=== PATIENT | female | born 1960 | race Caucasian/White ===

== ENCOUNTER 2019-10-21 08:16 | Outpatient (CLI) | payer BC, SELFPAY ==
[2019-10-21 09:17] LABS: Add Urine Microscopic? YES; Appearance Urine Clear (Clear); Bilirubin Urine Negative (Negative); Blood Urine Negative (Negative); Color Urine Amber (Yellow); Glucose Urine UA Negative (Negative); Ketones Urine Negative (Negative); Leukocyte Esterase Ur Trace LEU/UL (NEGATIVE); Mucus Urine Few /lpf; Nitrate Urine Negative (Negative); Protein Urine Negative (Negative); RBC Urine 0-2 /hpf (0-2); Specific Grav Ur 1.019 (1.001-1.035); Squamous Epithelial Cell Urine Few /hpf (Few); Urobilinogen Urine Negative mg/dL (<2.0)
== END 2019-10-21 08:17 | disposition home or self-care (01) ==
PROVIDERS: PCP Family Medicine Adolescent Medicine; Visit Provider Family Medicine Adolescent Medicine
DX: N30.00 Acute cystitis without hematuria (principal)
CPT/HCPCS: 81001

== ENCOUNTER 2020-09-19 07:38 | Outpatient (CLI) | payer BC, SELFPAY ==
--- NOTE | ~2020-09-19 | MM_ITS ---
EXAMINATION: MM screening darell BI w jemma HISTORY: Screening mammogram TECHNIQUE: Craniocaudal and mediolateral oblique 3-D tomosynthesis images were obtained and synthetic 2-D images were generated. CAD analysis was submitted and interpreted. COMPARISON: 08/14/2018, 08/06/2017, 07/15/2016 bilateral digital screening mammogram examinations BREAST PARENCHYMAL COMPOSITION: There are scattered areas of fibroglandular density. FINDINGS: There is no evidence of suspicious mass, calcification, or architectural distortion to sugg est malignancy in either breast. There has been no suspicious interval change. IMPRESSION: 1. No mammographic evidence of malignancy. 2. Recommend routine screening mammography in one year. BI-RADS Category 1: Negative Reviewed, dictated and finalized at location A.
== END 2020-09-19 07:39 | disposition home or self-care (01) ==
LOC: ANHIMG 07:41
PROVIDERS: PCP Family Medicine Adolescent Medicine; Visit Provider Family Medicine Adolescent Medicine
DX: Z12.31 Encounter for screening mammogram for malignant neoplasm of breast (principal)
CPT/HCPCS: 77063; 77067

== ENCOUNTER 2021-09-12 07:01 | Outpatient (CLI) | payer BC, SELFPAY ==
--- NOTE | ~2021-09-12 | XR_ITS ---
EXAMINATION: XR chest 2V DATE: 09/12/2021 07:18 INDICATION: Cough. TECHNIQUE: Frontal and lateral views of the chest were obtained. COMPARISON: None. FINDINGS: Calcified pulmonary nodules are consistent with old granulomatous disease. No pleural effus ion or pneumothorax. The heart size is normal. Surgical clips in the right upper quadrant are likely from cholecystectomy. IMPRESSION: 1. No acute cardiopulmonary disease. Reviewed, dictated and finalized at location B.
== END 2021-09-12 07:02 | disposition home or self-care (01) ==
LOC: ANHIMG 07:05
PROVIDERS: PCP Family Medicine Adolescent Medicine; Visit Provider Physician Assistant
DX: R05.9 Cough, unspecified (principal)
CPT/HCPCS: 71046

== ENCOUNTER 2021-12-17 08:17 | Outpatient (CLI) | payer BC, SELFPAY ==
--- NOTE | ~2021-12-17 | CT_ITS ---
EXAMINATION: CT diagnostic chest wo con DATE: 12/17/2021 08:49 INDICATION: Progressive, chronic cough TECHNIQUE: Computed tomography (CT) of the chest was performed without intravenous contrast. The dose -length product (DLP) was 405.50 mGy-cm. Automated exposure control and iterative reconstruction tech nique were employed. COMPARISON: None FINDINGS: There is a 9 mm nodule of the right middle lobe. Calcified pulmonary nodules and calcified right hilar and mediastinal lymph nodes are consistent with old granulomatous disease. The lungs are free of acute opacities. No pleural effusion or pneumothorax. Calcified coronary artery atheroscleros is is noted. There is subtle subendocardial fat deposition in the left ventricular apex which could r eflect prior myocardial infarction. The gallbladder is surgically absent. Punctate calcifications in an otherwise normal spleen likely represent healed granulomatous disease. There is moderate thoracic spondylosis. IMPRESSION: 1. No CT correlate for the patient's symptoms. 2. 9 mm nodule of the right middle lobe which could reflect granulomatous disease given calcified nod ules seen elsewhere in the lungs however, malignancy could have a similar appearance. Follow-up CT in 3-6 months is recommended. Reviewed, dictated and finalized at location B. IMPRESSION: 1. No CT correlate for the patient's symptoms. 2. 9 mm nodule of the right middle lobe which could reflect granulomatous disea se given calcified nodules seen elsewhere in the lungs however, malignancy coul d have a similar appearance. Follow-up CT in 3-6 months is recommended.
--- NOTE | 2021-12-17 15:04 | WPDSIXMINUTE ---
Six Minute Walk Procedure Procedure Performed Pulmonary Stress Test (6 min walk) Six Minute Walk Six Minute Walk: This is a 6 minute walk test. The test was performed and interpreted in accordance with the 2014 ERS/ATS task force guidelines. Findings: The patient's resting room air oxygen saturation measured by pulse oximetry was 95% and heart rate was 78 bpm. Patient ambulated for 366 meters and oxygen saturation remained 93 to 97%. Heart rate at the end of the study was 105 bpm. The patient did not qualify for supplemental oxygen at rest or with ambulation. There are no prior studies for comparison.
--- NOTE | 2021-12-17 15:05 | WPDPFTINT ---
PFT Procedure Performed PFT Procedure Performed Spirometry with Pre/Post Bronchodilator Plethysmography (Lung Vol) Diffusing Cap (DLCO) Flow Vol Loop PFT Interpretation This is a pulmonary function test with pre and post-bronchodilator spirometry, plethysmography and diffusing capacity. The test was performed and results interpreted in accordance with the 2019 and 2005 ATS/ERS Task Force guidelines respectively using the Global Lung Function Initiative-2012 reference equations. Patient demonstrated good effort and cooperation. Reproducibility criteria were met. The quality of the pre bronchodilator spirometry maneuver was Grade A and post bronchodilator spirometry maneuver was Grade A. Findings: Spirometry: the contour the inspiratory and expiratory flow tracing are normal. The pre bronchodilator FVC is 3.85 L, 106% predicted. The pre bronchodilator FEV1 is 2.81 L, 99% predicted. The pre bronchodilator FEV1: FVC ratio is 73%. The post bronchodilator FVC is 3.79 L, representing 1% decrease. The post bronchodilator FEV1 is 3.05 L, representing a 9% increase. The post bronchodilator FEV1: FVC ratio was 80%. Plethysmography: The total lung capacity is 6.49 L, 112% predicted. The functional residual capacity is 3.68 L, 111% predicted. The residual volume is 2.65 L, 115% predicted. Diffusion capacity: The diffusing capacity unadjusted for hemoglobin and carboxyhemoglobin is 22.0, 94% predicted. The diffusing capacity adjusted for alveolar volume is 4.99, 120% present did. Impression: The spirometry is normal without evidence of an obstructive abnormality. There is no significant improvement after inhaling a single dose of albuterol. The lung volumes are normal. The diffusing capacity is normal. There are no prior studies for comparison
== END 2021-12-17 08:18 | disposition home or self-care (01) ==
PROVIDERS: PCP Family Medicine Adolescent Medicine; Visit Provider Nurse Practitioner Family
DX: R06.00 Dyspnea, unspecified (principal); R05.3 Chronic cough; Z87.891 Personal history of nicotine dependence
CPT/HCPCS: 71250; 94060; 94618; 94726; 94729

== ENCOUNTER 2022-02-01 08:31 | Outpatient (CLI) | payer BC, SELFPAY ==
--- NOTE | ~2022-02-01 | MM_ITS ---
EXAMINATION: MM screening darell BI w jemma HISTORY: Screening mammogram TECHNIQUE: Craniocaudal and mediolateral oblique 3-D tomosynthesis images were obtained and synthetic 2-D images were generated. CAD analysis was submitted and interpreted. COMPARISON: 09/19/2020, 08/14/2018, 08/06/2017 bilateral screening mammogram examinations BREAST PARENCHYMAL COMPOSITION: There are scattered areas of fibroglandular density. FINDINGS: There is no evidence of suspicious mass, calcification, or architectural distortion to sugg est malignancy in either breast. There has been no suspicious interval change. IMPRESSION: 1. No mammographic evidence of malignancy. 2. Recommend routine screening mammography in one year. BI-RADS Category 1: Negative Reviewed, dictated and finalized at location A.
== END 2022-02-01 08:32 | disposition home or self-care (01) ==
LOC: ANHIMG 08:33
PROVIDERS: PCP Family Medicine Adolescent Medicine; Visit Provider Family Medicine Adolescent Medicine
DX: Z12.31 Encounter for screening mammogram for malignant neoplasm of breast (principal)
CPT/HCPCS: 77063; 77067

== ENCOUNTER 2022-02-01 13:13 | Outpatient (CLI) | payer BC, SELFPAY ==
--- NOTE | 2022-02-01 13:47 | ECHO_ITS ---
Patient Info Name: Lilibeth Harrison Age: 61 years : 1960 Gender: Female Ht: 69 in Wt: 245 lbs BSA: 2.37 m2 HR: 72 bpm BP: 139 / 80 mmHg Technical Quality: Good Exam Date: 02/01/2022 2:09 PM Exam Location: [facility] Patient Status: Outpatient Admit Date: 02/01/2022 Staff Ordering Physician: Wilbert Dominguez DO Taxi Servicer: Ellie Arredondo RDCS Attending Provider: Wilbert Dominguez DO Referring Physician: Alberto PARRA; Exam Type: CA echo doppler color flow Study Info Indications R06.09 - Other forms of dyspnea Complete two-dimensional, color flow and Doppler transthoracic echocardiogram is performed. Summary 1. Complete two-dimensional, color flow and Doppler transthoracic echocardiogram is performed. 2. Left ventricular chamber dimension is normal. 3. Left ventricular systolic function is normal, estimated at 60-65%. 4. There is mildly increased left ventricular wall thickness. 5. The left ventricular diastolic function is grade I diastolic dysfunction. 6. E/e' 10 is mildly elevated. 7. Global longitudinal strain is abnormal at -14.9%. 8. No pulmonary hypertension, estimated pulmonary arterial systolic pressure is 29 mmHg. Left Ventricle E/e' 10 is mildly elevated. Global longitudinal strain is abnormal at -14.9%. Left ventricular chamber dimension is normal. Left ventricular systolic function is normal, estimated at 60-65%. There is mildly increased left ventricular wall thickness. The left ventricular diastolic function is grade I diastolic dysfunction. Right Ventricle Right ventricular chamber dimension is normal. Right ventricular systolic function is normal. Left Atria Left atrial chamber dimension is normal. Right Atria Right atrial chamber dimension is normal. Aortic Valve The aortic valve is trileaflet. There is no aortic valve stenosis. There is no aortic valve regurgitation. Pulmonic Valve There is no pulmonic regurgitation. Mitral Valve There is no mitral valve stenosis. There is no mitral valve regurgitation. Tricuspid Valve There is no tricuspid valve regurgitation. No pulmonary hypertension, estimated pulmonary arterial systolic pressure is 29 mmHg. Pericardium/Pleural There is no pericardial effusion. Inferior Vena Cava Normal inferior vena cava with >50% collapse upon inspiration consistent with normal right atrial pressure, 5 mmHg. Aorta The aortic root size at the sinus of Valsalva is normal. Left Ventricular Outflow Tract Name Value Normal LVOT 2D LVOT Diameter 2.0 cm LVOT Doppler LVOT Peak Gradient 5 mmHg LVOT Mean Gradient 3 mmHg LVOT VTI 27 cm LVOT VTI/AV VTI Ratio 0.8 LVOT Stroke Volume 84 ml LVOT CO 6.0 l/min LVOT CI 2.5 l/min/m2 Pulmonic Valve Name Value Normal
== END 2022-02-01 13:14 | disposition home or self-care (01) ==
LOC: ANHCARD 13:13
PROVIDERS: PCP Family Medicine Adolescent Medicine; Visit Provider Internal Medicine Cardiovascular Disease
DX: R06.09 Other forms of dyspnea (principal); I51.89 Other ill-defined heart diseases
CPT/HCPCS: 93306

== ENCOUNTER 2022-03-21 09:46 | Outpatient (CLI) | payer BC, SELFPAY ==
--- NOTE | ~2022-03-21 | CT_ITS ---
EXAMINATION: CT diagnostic chest wo con DATE: 03/21/2022 10:05 INDICATION: Lung nodule follow-up TECHNIQUE: Computed tomography (CT) of the chest was performed without intravenous contrast. Automate d exposure control and iterative reconstruction technique were employed. Exam dose: 173.23 mGy-cm to jme exam DLP. COMPARISON: 12/17/2021 CT chest FINDINGS: Stable mild bilateral apical scarring. There are multiple right upper, middle and lower lob e nodular densities which are stable since 12/17/2021, most likely calcified, likely due to old pulmon kain granulomatous disease. Calcified right paratracheal, precarinal and right hilar and subcarinal lymph nodes. Borderline heart size. No pericardial or pleural effusion. No thoracic aortic aneurysm. No hilar or mediastinal mass lesion or lymphadenopathy. There are multiple calcified splenic granulomas as well. Follow-up CT imaging in 12 months is recommended to document continued stability. No pulmonary infiltrate or consolidation. Small sliding hiatal hernia. Status post cholecystectomy. IMPRESSION: Stable old granulomatous disease Recommend [address] follow-up to document continued stability of multiple right pulmonary nodules Reviewed, dictated and finalized at Location A. Reviewed, dictated and finalized at location A. IMPRESSION: Stable old granulomatous disease Recommend [address] follow-up to document continued stability of multiple rig ht pulmonary nodules
== END 2022-03-21 09:47 | disposition home or self-care (01) ==
PROVIDERS: PCP Family Medicine Adolescent Medicine; Visit Provider Nurse Practitioner Family
DX: R91.1 Solitary pulmonary nodule (principal); R91.8 Other nonspecific abnormal finding of lung field
CPT/HCPCS: 71250

== ENCOUNTER 2022-04-11 00:27 | Day surgery (SDC) | payer BC, SELFPAY ==
[2022-03-29 15:00] VITALS: BMI 36.3
--- NOTE | 2022-04-10 14:59 | WPDANESEPPF ---
Anes - Initial Pre Proc Eval Procedure: Operation Date: 04/11/22 08:45 Proposed Procedures p Esophagogastroduodenoscopy & Screening Colonoscopy - Chase Barakat MD Date/Time: 04/10/22 14:59 Surgeon: Chase Barakat MD Pre Op Diagnosis: GERD & cough; bruce screen & Hx of colon polyps Patient Data Age: 61 Gender: F Height: 1.75 m Weight: 111.5 kg Allergies Allergy/AdvReac Type Severity Reaction Status Date / Time Sulfa (Sulfonamide Allergy Mild Rash Verified 04/11/22 07:29 Antibiotics) lisinopril AdvReac Intermediate Cough Verified 04/11/22 07:29 metoprolol AdvReac Intermediate cough Verified 04/11/22 07:29 metoclopramide AdvReac Mild Verified 04/11/22 07:29 Home Medications Medication Instructions Recorded Confirmed Type candesartan 32 mg tablet 32 mg PO DAILY 05/31/21 04/11/22 History multivitamin (Multiple Vitamins 1 tablet PO DAILY 08/29/21 04/11/22 History tablet) vitamin B complex 1 cap PO DAILY 08/29/21 04/11/22 History inhalational spacing device #1 ea 12/19/21 04/11/22 Rx (Flexichamber spacer) amlodipine 10 mg tablet 10 mg PO DAILY #90 tabs 12/31/21 04/11/22 Rx hydrochlorothiazide 25 mg tablet 25 mg PO DAILY #90 tabs 12/31/21 04/11/22 Rx benzonatate 200 mg capsule 200 mg PO TID PRN cough #90 caps 01/02/22 04/11/22 Rx omeprazole 40 mg-sodium 1 cap PO DAILY 02/25/22 04/11/22 History bicarbonate 1.1 gram capsule ezetimibe 10 mg tablet 10 mg PO DAILY 03/29/22 04/11/22 History montelukast 10 mg tablet 10 mg PO DAILY 03/29/22 04/11/22 History triamcinolone acetonide 0.1 % 1 applic topical EVERY OTHER DAY 03/29/22 04/11/22 History topical cream Patient hx anesthesia problems: none Family hx anesthesia problems: none Results Review: All pre-operative results and documents have been reviewed as part of the pre-operative evaluation. [facility] Past Medical History Medical History (Updated 11/16/22 @ 15:00 by Girma Lee MD) Allergic rhinitis Fibrocystic breast disease GERD (gastroesophageal reflux disease) History of colon polyps Hx of adenomatous colonic polyps Hypercholesterolemia Hypertension Obesity (BMI 30-39.9) Surgical History Surgical History History of cataract surgery History of cholecystectomy History of foot surgery History of hand surgery History of left knee surgery History of total hysterectomy History of tubal ligation Family History Family History Mother Acute myocardial infarction Depression Hypertension Father Acute myocardial infarction Lymphoma Cerebrovascular accident Hypertension Sibling Depression Other Colon polyp Diabetes mellitus FH: throat cancer Heart disease Social History Social History Smoking packs per day: 1 Smoking cigarettes per day: 20.0 Years smoked: 14 Smoking pack-years: 14.00 Smoking status: Former smoker Tobacco type: cigarettes Second hand tobacco smoke exposure: Yes Smoking end date: 05/26/86 Alcohol intake: current Alcohol use details: 1-2 drinks per month Substance use: never Substance use type: does not use Living arrangements: with family Gender identity (if verbalized by the patient): Female Sexual Orientation (if Verbalized by the Patient): Straight or Heterosexual Spiritual care concerns: No Agree to blood products: Yes Anes - Eval Final PreProcedure Day of Procedure 04/10/22 14:59 Patient weight: obese Heart: regular rate and rhythm Lungs: clear to auscultation and normal air movement Airway: Mallampati scale class II Neurological: alert and oriented Last oral intake: >/= 8 hours ASA classification: III Emergent: no Anesthetic plan: proceed Anesthesia type and monitoring: general GIVS Results Review: All pre-operative results and documents have been revi
[2022-04-11 07:20] VITALS: BP 146/74; PULSE 80; RESP 18; TEMP 36.2; O2SAT 98; BMI 36.5
[2022-04-11] MEDS: LACTATED RINGERS 1,000 ML 150 ML IV CONT (07:44)
--- NOTE | 2022-04-11 08:21 | PM.HPGS ---
History of Present Illness History of Present Illness Consent: Risks, benefits, and alternatives have been discussed and questions answered. Patient agrees to proceed with procedure. Chief complaint: GERD & cough; bruce screen & Hx of colon polyps Narrative: Lilibeth Harrison is a 61 year old female Presents for colonoscopy and EGD. Patient has a prior history of colon polyps [address] Chase Gan. Adenomatous colon polyps were identified at that time. Patient has no known family history of removed. Additionally patient complains of a chronic cough. She is known to have acid reflux for many years. Typically would have nocturnal regurgitation. She states that since starting Zegrid she has had improved symptoms. Omeprazole without the concomitant bicarbonate has been of less benefit. Patient denies any dysphagia. She has had no bleeding or weight loss. Previous pulmonary workup for cough is noncontributory. Review of Systems Review of Systems: Review of systems noncontributory. [facility] Past Medical History Medical History (Updated 04/10/22 @ 15:00 by Girma Lee MD) Allergic rhinitis Fibrocystic breast disease GERD (gastroesophageal reflux disease) History of colon polyps Hx of adenomatous colonic polyps Hypercholesterolemia Hypertension Obesity (BMI 30-39.9) Surgical History Surgical History History of cataract surgery History of cholecystectomy History of foot surgery History of hand surgery History of left knee surgery History of total hysterectomy History of tubal ligation Family History Family History Mother Acute myocardial infarction Depression Hypertension Father Acute myocardial infarction Lymphoma Cerebrovascular accident Hypertension Sibling Depression Other Colon polyp Diabetes mellitus FH: throat cancer Heart disease Social History Social History Smoking packs per day: 1 Smoking cigarettes per day: 20.0 Years smoked: 14 Smoking pack-years: 14.00 Smoking status: Former smoker Tobacco type: cigarettes Second hand tobacco smoke exposure: Yes Smoking end date: 05/26/86 Alcohol intake: current Alcohol use details: 1-2 drinks per month Substance use: never Substance use type: does not use Living arrangements: with family Gender identity (if verbalized by the patient): Female Sexual Orientation (if Verbalized by the Patient): Straight or Heterosexual Spiritual care concerns: No Agree to blood products: Yes Meds Home Medications and Allergies Home Medications Medication Instructions Recorded Confirmed Type candesartan 32 mg tablet 32 mg PO DAILY 05/31/21 04/11/22 History multivitamin (Multiple Vitamins 1 tablet PO DAILY 08/29/21 04/11/22 History tablet) vitamin B complex 1 cap PO DAILY 08/29/21 04/11/22 History inhalational spacing device #1 ea 12/19/21 04/11/22 Rx (Flexichamber spacer) amlodipine 10 mg tablet 10 mg PO DAILY #90 tabs 12/31/21 04/11/22 Rx hydrochlorothiazide 25 mg tablet 25 mg PO DAILY #90 tabs 12/31/21 04/11/22 Rx benzonatate 200 mg capsule 200 mg PO TID PRN cough #90 caps 01/02/22 04/11/22 Rx omeprazole 40 mg-sodium 1 cap PO DAILY 02/25/22 04/11/22 History bicarbonate 1.1 gram capsule ezetimibe 10 mg tablet 10 mg PO DAILY 03/29/22 04/11/22 History montelukast 10 mg tablet 10 mg PO DAILY 03/29/22 04/11/22 History triamcinolone acetonide 0.1 % 1 applic topical EVERY OTHER DAY 03/29/22 04/11/22 History topical cream Allergies Allergy/AdvReac Type Severity Reaction Status Date / Time Sulfa (Sulfonamide Allergy Mild Rash Verified 04/11/22 07:29 Antibiotics) lisinopril AdvReac Intermediate Cough Verified 04/11/22 07:29 metoprolol AdvReac Intermediate cough Verified 04/11/22 07:29 metoclopramide AdvReac Mi
--- NOTE | 2022-04-11 08:42 | SUR.OPER ---
EGD START TIME 0832. EGD END TIME AT 0841. COLONOSCOPY START TIME AT 0849.
[2022-04-11 09:09] VITALS: BP 139/69; PULSE 71; RESP 22; O2SAT 97
[2022-04-11 09:19] VITALS: BP 140/69; PULSE 68; RESP 25; O2SAT 99
[2022-04-11 09:29] VITALS: BP 143/72; PULSE 64; RESP 16; O2SAT 99
== END 2022-04-11 09:38 | disposition home or self-care (01) ==
PROVIDERS: PCP Family Medicine Adolescent Medicine; Visit Provider Internal Medicine Gastroenterology
PROC: 0DJ08ZZ Inspection of Upper Intestinal Tract, Via Natural or Artificial Opening Endoscopic (ICD-10-PCS; CPT 43235; principal; 2022-04-11 08:45)
DX: Z12.11 Encounter for screening for malignant neoplasm of colon (principal); K64.8 Other hemorrhoids; K57.30 Diverticulosis of large intestine without perforation or abscess without bleeding; Z86.010 Personal history of colon polyps; K21.9 Gastro-esophageal reflux disease without esophagitis; I10 Essential (primary) hypertension; E78.00 Pure hypercholesterolemia, unspecified; E66.9 Obesity, unspecified; Z68.36 Body mass index [BMI] 36.0-36.9, adult; Z87.891 Personal history of nicotine dependence
CPT/HCPCS: 45378; 43239; 87081; J2704; J7120

== ENCOUNTER 2022-04-30 08:51 | Outpatient (CLI) | payer BC, SELFPAY ==
[2022-04-30 10:10] LABS: Anion Gap 2 mmol/L (8-16); Blood Urea Nitrogen 13 mg/dL (7-17); Carbon Dioxide 29 mmol/L (22-30); Chloride 98 mmol/L (98-107); Estimated Glomerular Filt Rate > 60; Glucose 87 mg/dL (65-110); Potassium 3.9 mmol/L (3.4-5.0); Sodium 129 mmol/L (137-145)
== END 2022-04-30 08:52 | disposition home or self-care (01) ==
PROVIDERS: Anesthesiology; PCP Family Medicine Adolescent Medicine; Visit Provider Orthopaedic Surgery
DX: Z51.81 Encounter for therapeutic drug level monitoring (principal); Z79.899 Other long term (current) drug therapy
CPT/HCPCS: 36415; 80048

== ENCOUNTER 2022-05-08 01:21 | Day surgery (SDC) | payer BC, SELFPAY ==
[2022-04-25 10:17] VITALS: BMI 36.1
--- NOTE | 2022-04-25 10:23 | PC.NURSE ---
Report to the Outpatient Waiting Room, entrance under the green pavilion located off [facility], at time 8:30 on date 05/08/22. Planned Procedure Time: 10:30. Time changes happen often and if your time is changed the preop area will call you the afternoon before. - You and your visitor will be asked to self-screen and do not enter if you have any COVID symptoms. - Only one visitor is requested with a max of two and NO children visitors are allowed at this time. - The patient visitor may be requested to leave or wait in car when not with patient due to distancing restrictions. - A mask is optional within the hospital. Patients may have clear liquids (water, carbonated beverages, clear teas, apple juice) until 3 hours prior to surgery (7:30) with a maximum of 20 ounces. - No food from midnight until time of surgery Take the following medications with a SIP of water the morning of surgery: AMLODIPINE Medications to discontinue per physician: VITAMINS/SUPPLEMENTS Date to take last dose: 05/04/22 Please no make-up, nail irish, hairspray, perfume, deodorant, or body powder the day of surgery. No jewelry (including any body piercings) or valuables the day of surgery, leave them at home. Please take a shower or bath the night before, or the morning of, surgery with an antibacterial soap. Wear comfortable, loose fitting clothing. - Jewelry must be removed prior to entering the operating room. Rings and piercings that are not removed may be cut off. - The hospital will not accept responsibility for valuables. - Please leave all valuables, including medications, at home the day of surgery. If you are going home after surgery, a licensed regional refrigerated cdl truck driver must drive you home. - NO public transportation without another adult if you receive anesthesia. - We recommend that an adult stay with you for 24 hours following discharge. - We also recommend that you do not drive, make important decision, drink alcoholic beverages, or take any drugs that were not prescribed by your health care provider for at least 24 hours after your discharge time. Follow any additional instructions given to you from your surgeon. If you or anyone in your household have experienced Covid symptoms in the past week, please notify your surgeon or the nurse liaison at the phone number below for possible testing. Telephone instructions given to PT Cyn ZHENG JASMIN and asked if any additional questions and then verbalized understanding. Patient advised to call surgeon office or pre surgery nurse liaison [phone] if any additional questions.
--- NOTE | 2022-05-03 14:24 | PM.IMHP ---
H&P: HPI History of Present Illness Date/Time: 05/03/22 14:24 Chief Complaint: the patient is a 61-year-old female who sees Dr. Blevins regarding her right knee. The patient has mechanical symptoms aching pain catching and swelling. Patient cannot stand or walk for long periods has trouble twisting or turning squatting kneeling going up and down stairs. Despite conservative measures including cortisone therapy and anti-inflammatories symptoms continue. An MRI scan was performed. This shows an ill-defined tear of the inner margin of the body of the lateral meniscus there is tear of the radial inner margin of the medial meniscus as well. There was a 3 mm lateral patellar subluxation focal thinning of the articular cartilage of the central patella and mild thinning of the articular cartilage of the medial compartment. There is a large knee joint effusion and ruptured popliteal fossa cyst. Stabilizing ligaments of the knee are intact. At this point the patient is aware the above finding she knows she has pre-existing osteoarthritis and may not get full relief of her knee pain from knee arthroscopy however she would like to proceed. Review of Systems Review of Systems: 10 point review of systems otherwise negative [facility] Past Medical History Medical History Allergic rhinitis Fibrocystic breast disease GERD (gastroesophageal reflux disease) History of colon polyps Hx of adenomatous colonic polyps Hypercholesterolemia Hypertension Obesity (BMI 30-39.9) Surgical History Surgical History History of cataract surgery History of cholecystectomy History of foot surgery History of hand surgery History of left knee surgery History of total hysterectomy History of tubal ligation Family History Family History Mother Acute myocardial infarction Depression Hypertension Father Acute myocardial infarction Lymphoma Cerebrovascular accident Hypertension Sibling Depression Other Colon polyp Diabetes mellitus FH: throat cancer Heart disease Social History Social History Smoking packs per day: 1 Smoking cigarettes per day: 20.0 Years smoked: 14 Smoking pack-years: 14.00 Smoking status: Former smoker Tobacco type: cigarettes Second hand tobacco smoke exposure: Yes Smoking end date: 05/26/86 Alcohol intake: never Alcohol use details: 1-2 drinks per month Substance use: never Substance use type: does not use Gender identity (if verbalized by the patient): Female Sexual Orientation (if Verbalized by the Patient): Straight or Heterosexual Spiritual care concerns: No Agree to blood products: Yes Meds Home Medications and Allergies Home Medications Medication Instructions Recorded Confirmed Type candesartan 32 mg tablet 32 mg PO DAILY 05/31/21 04/25/22 History multivitamin (Multiple Vitamins 1 tablet PO DAILY 08/29/21 04/25/22 History tablet) vitamin B complex 1 cap PO DAILY 08/29/21 04/25/22 History inhalational spacing device #1 ea 12/19/21 04/11/22 Rx (Flexichamber spacer) amlodipine 10 mg tablet 10 mg PO DAILY #90 tabs 12/31/21 04/25/22 Rx hydrochlorothiazide 25 mg tablet 25 mg PO DAILY #90 tabs 12/31/21 04/25/22 Rx omeprazole 40 mg-sodium 1 cap PO DAILY 02/25/22 04/25/22 History bicarbonate 1.1 gram capsule ezetimibe 10 mg tablet 10 mg PO DAILY 03/29/22 04/25/22 History montelukast 10 mg tablet 10 mg PO DAILY 03/29/22 04/25/22 History triamcinolone acetonide 0.1 % 1 applic topical EVERY OTHER DAY 03/29/22 04/25/22 History topical cream Allergies Allergy/AdvReac Type Severity Reaction Status Date / Time Sulfa (Sulfonamide Allergy Mild Rash Verified 04/25/22 10:16 Antibiotics) lisinopril AdvReac Intermediate Cough Verified 04/25/22 10:
--- NOTE | 2022-05-07 13:34 | WPDANESEPPF ---
Anes - Initial Pre Proc Eval Procedure: Operation Date: 05/08/22 10:30 Proposed Procedures p Right Knee Arthroscopy, Partial Medial and Lateral Meniscectomy, Proceed As Indicated - Jl Blevins MD Date/Time: 05/07/22 13:34 Surgeon: Jl Blevins MD Pre Op Diagnosis: medial meniscal tear right knee Patient Data Age: 61 Gender: F Height: 1.75 m Weight: 111.13 kg Allergies Allergy/AdvReac Type Severity Reaction Status Date / Time Sulfa (Sulfonamide Allergy Mild Rash Verified 05/08/22 08:36 Antibiotics) lisinopril AdvReac Intermediate Cough Verified 05/08/22 08:36 metoprolol AdvReac Intermediate cough Verified 05/08/22 08:36 metoclopramide AdvReac Mild Verified 05/08/22 08:36 Home Medications Medication Instructions Recorded Confirmed Type candesartan 32 mg tablet 32 mg PO DAILY 05/31/21 05/08/22 History multivitamin (Multiple Vitamins 1 tablet PO DAILY 08/29/21 05/08/22 History tablet) vitamin B complex 1 cap PO DAILY 08/29/21 05/08/22 History inhalational spacing device #1 ea 12/19/21 04/11/22 Rx (Flexichamber spacer) amlodipine 10 mg tablet 10 mg PO DAILY #90 tabs 12/31/21 05/08/22 Rx hydrochlorothiazide 25 mg tablet 25 mg PO DAILY #90 tabs 12/31/21 05/08/22 Rx omeprazole 40 mg-sodium 1 cap PO DAILY 02/25/22 05/08/22 History bicarbonate 1.1 gram capsule montelukast 10 mg tablet 10 mg PO DAILY 03/29/22 05/08/22 History triamcinolone acetonide 0.1 % 1 applic topical EVERY OTHER DAY 03/29/22 05/08/22 History topical cream ezetimibe 10 mg tablet 10 mg PO DAILY #90 tabs 05/08/22 Rx Patient hx anesthesia problems: none Family hx anesthesia problems: none Results Review: All pre-operative results and documents have been reviewed as part of the pre-operative evaluation. [facility] Past Medical History Medical History Allergic rhinitis Fibrocystic breast disease GERD (gastroesophageal reflux disease) History of colon polyps Hx of adenomatous colonic polyps Hypercholesterolemia Hypertension Obesity (BMI 30-39.9) Surgical History Surgical History History of cataract surgery History of cholecystectomy History of foot surgery History of hand surgery History of left knee surgery History of total hysterectomy History of tubal ligation Family History Family History Mother Acute myocardial infarction Depression Hypertension Father Acute myocardial infarction Lymphoma Cerebrovascular accident Hypertension Sibling Depression Other Colon polyp Diabetes mellitus FH: throat cancer Heart disease Social History Social History Smoking packs per day: 1 Smoking cigarettes per day: 20.0 Years smoked: 14 Smoking pack-years: 14.00 Smoking status: Former smoker Tobacco type: cigarettes Second hand tobacco smoke exposure: Yes Smoking end date: 05/26/86 Alcohol intake: never Alcohol use details: 1-2 drinks per month Substance use: never Substance use type: does not use Living arrangements: with family Gender identity (if verbalized by the patient): Female Sexual Orientation (if Verbalized by the Patient): Straight or Heterosexual Spiritual care concerns: No Agree to blood products: Yes Anes - Eval Final PreProcedure Day of Procedure 05/07/22 13:34 Patient weight: obese Heart: regular rate and rhythm Lungs: clear to auscultation and normal air movement Airway: Mallampati scale class II Neurological: alert and oriented Last oral intake: >/= 8 hours ASA classification: III Emergent: no Anesthetic plan: proceed Anesthesia type and monitoring: general LMA Results Review: All pre-operative results and documents have been reviewed as part of the pre-operative evaluation. Informed Consent: The patie
[2022-05-08] VITALS (10 sets, daily range): BP systolic 107–149; BP diastolic 50–83; PULSE 57–86; RESP 14–23; TEMP 36.7–37; O2SAT 93–100
--- NOTE | 2022-05-08 06:55 | WPDHPUPDATE1 ---
History and Physical Update Update Date/Time: 05/08/22 06:55 History and Physical has been reviewed, including an updated exam of the patient. There are NO changes in the patient's condition. Risks, benefits, and alternatives have been discussed and questions answered. Patient agrees to proceed with procedure.
[2022-05-08] MEDS: ACETAMINOPHEN 500 MG TABLET 1000 MG PO (08:38)
[2022-05-08] MEDS: LACTATED RINGERS 1,000 ML 30 ML IV CONT (09:00)
[2022-05-08] MEDS: KETOROLAC 15 MG/ML VIAL (*BKC) IV PUSH (09:01)
[2022-05-08 09:14] LABS: Sodium 134 mmol/L (137-145)
[2022-05-08] MEDS: ceFAZolin 2 GM/D5W 50 ML 2 GM/50 ML BAG IVPB (10:19)
--- NOTE | 2022-05-08 10:57 | W.PM.PROC2 ---
Procedure Note - Detailed Date of Procedure 05/08/22 Pre-op Diagnosis medial meniscal tear right knee lateral Meniscal tear right knee Post-op Diagnosis Same Procedure Performed [Right] knee arthroscopy with partial meniscetom, medial and lateral. Surgeon Jl Blevins MD Anesthesia General Description of Procedure Patient brought to the operating room and anesthetic was administered. The knee was steriley prepped and drapped in the usual manner. Standard portals were used. Superior medial portal was used for the outflow cannula, inferior lateral portal was used for the scope, inferior medial portal was used for the instruments. Arthroscopy was performed, the patellar femoral joint degenerative changes. The medial compartment showed a complex tear posteriorly. The lateral compartment showed a complex tear as well in the body of the meniscus. The ACL was intact. Using baskets and gildardo the meniscal tears were trimmed back to a stable base so the nothing further could be pulled into the joint. Any loose or delaminated fragments were gently trimmed to a stable base. At this point the instruments were withdrawn, sutures placed and patient left the operating room in satisfactory condition. Grade 3-4 chondromalacia noted in the patellofemoral compartment. Estimated Blood Loss 20 Drains No Packing No Pathology None sent Complications No immediate complications Condition Stable Disposition PACU
[2022-05-08] MEDS: fentaNYL CITRATE INJ (*CRX) 100 MCG/2 ML VIAL 25 MCG IV PUSH ×4 (11:38→12:04)
[2022-05-08] MEDS: oxyCODONE HCL (*CRX) 5 MG TAB IR PO (12:29)
== END 2022-05-08 13:34 | disposition home or self-care (01) ==
PROVIDERS: Anesthesiology; PCP Family Medicine Adolescent Medicine; Visit Provider Orthopaedic Surgery
PROC: (CPT 29870; principal; 2022-05-08 10:30)
DX: M23.331 Other meniscus derangements, other medial meniscus, right knee (principal); M23.361 Other meniscus derangements, other lateral meniscus, right knee; I10 Essential (primary) hypertension; E78.00 Pure hypercholesterolemia, unspecified; K21.9 Gastro-esophageal reflux disease without esophagitis; E66.9 Obesity, unspecified; Z68.37 Body mass index [BMI] 37.0-37.9, adult; Z87.891 Personal history of nicotine dependence
CPT/HCPCS: 29880; 36415; 84295; A9270; J0690; J1100; J1885; J2250; J2405; J2704; J3010; J7120

== ENCOUNTER 2023-03-24 10:43 | Outpatient (CLI) | payer BC, SELFPAY ==
--- NOTE | ~2023-03-24 | CT_ITS ---
EXAMINATION: CT diagnostic chest wo con DATE: 03/24/2023 11:56 INDICATION: Solitary pulmonary nodule TECHNIQUE: Computed tomography (CT) of the chest was performed without intravenous contrast. The dose -length product was 172.30 mGy-cm. Automated exposure control and iterative reconstruction technique were employed. COMPARISON: CT dated 03/21/2022 and 12/17/2021 FINDINGS: Heart size normal. There is a small hiatal hernia. There are calcified granulomas of the donna ngs. No significant pleural or pericardial effusion. There are calcified granulomas of the spleen. Th ere is a stable 6 mm right middle lobe nodule, perifissural, image 67. There is a stable right middle lobe 9 mm nodule,. Fissural, image 5085. No endobronchial lesions. No new pulmonary nodules or r[place] s. Moderate thoracic spondylosis. Osteopenia. IMPRESSION: 1. Stable likely benign pulmonary nodules, many of which are calcified. Twelve-month follow-up low do se CT chest recommended. Reviewed, dictated and finalized at location A. IMPRESSION: 1. Stable likely benign pulmonary nodules, many of which are calcified. Twelve- month follow-up low dose CT chest recommended.
== END 2023-03-24 10:44 | disposition home or self-care (01) ==
PROVIDERS: PCP Family Medicine Adolescent Medicine; Visit Provider Internal Medicine Pulmonary Disease
DX: R91.1 Solitary pulmonary nodule (principal); R91.8 Other nonspecific abnormal finding of lung field
CPT/HCPCS: 71250

== ENCOUNTER 2023-06-27 07:46 | Outpatient (CLI) | payer MEDICARE, SELFPAY ==
--- NOTE | ~2023-06-27 | MM_ITS ---
EXAMINATION: MM screening darell BI w jemma HISTORY: Screening TECHNIQUE: Craniocaudal and mediolateral oblique 3-D tomosynthesis images were obtained and synthetic 2-D images were generated. CAD analysis was submitted and interpreted. COMPARISON: Comparison to multiple prior studies sequentially, with oldest reviewed study dated 01/2016. BREAST PARENCHYMAL COMPOSITION: There are scattered areas of fibroglandular density. FINDINGS: There is no evidence of suspicious mass, calcification, or architectural distortion to sugg est malignancy in either breast. There has been no suspicious interval change. IMPRESSION: 1. No mammographic evidence of malignancy. 2. Recommend routine screening mammography in one year. BI-RADS Category 1: Negative Reviewed, dictated and finalized at location A. [facility]
== END 2023-06-27 07:47 | disposition home or self-care (01) ==
LOC: ANHIMG 07:50
PROVIDERS: PCP Family Medicine Adolescent Medicine; Visit Provider Family Medicine Adolescent Medicine
DX: Z12.31 Encounter for screening mammogram for malignant neoplasm of breast (principal)
CPT/HCPCS: 77063; 77067

== ENCOUNTER 2024-01-12 08:11 | Outpatient (CLI) | payer MEDICARE, SELFPAY ==
--- NOTE | ~2024-01-12 | DEXA_ITS ---
Bone Density Report Name: HILARY CASTELLANOS Age: 63 Sex: Female Ethnicity: White Date of : 1960 Indication: postmenopausal; screening for osteoporosis; hysterectomy; Referring Provider: REYNALDO MEYER Study: Bone densitometry was performed. Exam Date: January 12, 2024 Accession number: [id number] Bone Density: Region BMD T-score Z-score Classification AP Spine(L1-L4) 0.914 -1.2 0.6 Osteopenia Femoral Neck (Left) 0.623 -2.0 -0.5 Osteopenia Total Hip (Left) 0.884 -0.5 0.8 Normal Femoral Neck (Right) 0.546 -2.7 -1.2 Osteoporosis Total Hip (Right) 0.768 -1.4 -0.2 Osteopenia Total Hip Mean 0.826 -1.0 0.3 Normal World Health Organization criteria for BMD impression classify patients as: Normal (T-score at or above -1.0), Osteopenia (T-score between -1.0 and -2.5), or Osteoporosis (T-score at or below -2.5). 10-year Fracture Risk: FRAX not reported because: Some T-score for Spine Total or Hip Total or Femoral Neck at or below -2.5 Clinical Information Provided by Patient: Has the following medical conditions: Hysterectomy Patient maximum height was 69.0 Does not regularly consume dairy products Onset of menses at age 9 Number of children 1 Impression: The patient has osteoporosis, based on the Right Femoral Neck T-score. Discussion: INCREASED RISK OF FRACTURE. BONE DENSITY IS UNDESIRABLY LOW AT ONE OR MORE SKELETAL SITES, CONSISTENT WITH POSTMENOPAUSAL OSTEOPOROSIS. This patient's lowest T-score meets the World Health Organization's (WHO) criteria for osteoporosis at one or more sites (T-score -2.5 or below). In untreated patients, the risk of osteoporotic fracture increases approximately two-fold for each 1.0 SD decrease in T-score. Low bone density is not the only risk factor for fracture; also consider factors such as patient's age, frailty or poor health, risk of falling, risk of injury, previous osteoporotic fracture, family history of osteoporosis, cigarette smoking, low body weight, etc. Not everyone with low bone mineral density has osteoporosis; osteomalacia and other metabolic bone disorders should also be considered. Patients who have osteoporosis should be evaluated for specific diseases and conditions (secondary causes) that may cause or contribute to bone loss. The [place] [employer] (AACE) and National Osteoporosis Foundation (NOF) recommend pharmacologic intervention for all postmenopausal women whose T-score is in this range. The patient should follow a healthful lifestyle (good nutrition with adequate calcium and vitamin D, and appropriate weight-bearing exercise). Follow-Up: Consider a repeat BMD and Vertebral Fracture Assessment (VFA) exam in 2 years or sooner if medically necessary, to reassess this patient's status. Reporte
== END 2024-01-12 08:12 | disposition home or self-care (01) ==
PROVIDERS: PCP Family Medicine Adolescent Medicine; Visit Provider Family Medicine Adolescent Medicine
DX: Z78.0 Asymptomatic menopausal state (principal); M85.88 Other specified disorders of bone density and structure, other site; M85.852 Other specified disorders of bone density and structure, left thigh; M81.0 Age-related osteoporosis without current pathological fracture; M85.851 Other specified disorders of bone density and structure, right thigh
CPT/HCPCS: 77080

== ENCOUNTER 2024-03-24 10:11 | Outpatient (CLI) | payer MEDICARE, SELFPAY ==
--- NOTE | ~2024-03-24 | CT_ITS ---
CT Scan of the Chest without Contrast: Clinical Indication: Pulmonary nodule Technique: Contiguous sections were acquired throughout the chest without intravenous contrast. Dose reduction technique was used on this scan by utilizing automated exposure control and iterative recon struction technique. The dose-length product (DLP) was 261.71 mGy-cm. COMPARISON: 03/24/2023 Findings: There is no evidence of any significant mediastinal, hilar or axillary lymphadenopathy. Coronary adriana ry calcifications are present. There is no evidence of pleural or pericardial effusion. Stable 7 mm perifissural nodule right middle lobe (axial image 68). Stable calcified right lower lobe granuloma. Stable additional 1 cm noncalcified right middle lobe pulmonary nodule (axial image 86). Additional calcified right basilar granuloma is unchanged. Images through the upper abdomen reveal no abnormalities. Impression: Stable pulmonary nodules, as detailed above. Reviewed, dictated and finalized at location . Impression: Stable pulmonary nodules, as detailed above.
== END 2024-03-24 10:12 | disposition home or self-care (01) ==
PROVIDERS: PCP Family Medicine Adolescent Medicine; Visit Provider Internal Medicine Pulmonary Disease
DX: R91.8 Other nonspecific abnormal finding of lung field (principal)
CPT/HCPCS: 71250

== ENCOUNTER 2024-08-20 07:55 | Outpatient (CLI) | payer MEDICARE, SELFPAY ==
--- NOTE | ~2024-08-20 | MM_ITS ---
EXAMINATION: MM screening [facility] BI w jemma HISTORY: Screening TECHNIQUE: Craniocaudal and mediolateral oblique 3-D tomosynthesis images were obtained and synthetic 2-D images were generated. CAD analysis was submitted and interpreted. COMPARISON: 06/27/2023 and dating back to 08/06/2017 BREAST PARENCHYMAL COMPOSITION: There are scattered areas of fibroglandular density. FINDINGS: Punctate calcifications are detected bilaterally, stable and benign in appearance. Stable parenchymal pattern without suspicious microcalcifications, architectural distortion, discrete masses or significant asymmetry. IMPRESSION: 1. No mammographic evidence of malignancy. 2. Recommend routine screening mammography in one year. BI-RADS Category 2: Benign finding(s). Reviewed, dictated and finalized at location A.
--- OUTSIDE RECORDS SUMMARY | 2024-08-20 08:03 | XMS_ITS | Data Portability ---
Author Organization [facility] [employer], Main Office Address [address] [place] [address] Care Team Providers Care Supervisor [employer] Name Role Phone REYNALDO MEYER Primary Care Provider REYNALDO MEYER Referring Provider Assessment Encounter Date Assessment Date Assessment LastModified by Organization Details LastModified Time 07/30/2022 07/30/2022 Patient returns status post knee arthroscopy for meniscal pathology. She states that at 1st he got better very quickly and she is doing really well now it is getting worse pain is localized primarily medially she did have some underlying arthritis probably aggravated by her obesity. We will see if we can settle this down for her I told her I did recommend a shot this was done with 20 mg Kenalog 4 cc 1% lidocaine. For prescription drug management will try prednisone taper. We will also do some therapy follow up in a month discussed. redd Not available 07/30/2022 15:03:45 Plan of Treatment Reminders Order Date Submit Date Provider Last Modified By Organization Details Last Modified Time Details Appointments None recorded. Lab None recorded. Referral physical therapist referral - please contact patient to schedule 2022 023 [facility], [address], [place], [address], 15:45:21 Procedures injection/ aspiration joint/burs a (PROC) - in office procedure, administer ed by provider 2022 023 [email or web address] Not available 15:13:00 Surgeries knee arthroscop y (SURG) 2022 022 MIGRATION. [id number] [facility], [address], [place], [address], 3 08:16:51 Imaging None recorded. Medication Orders Kenalog 10 mg/mL suspension for injection 2022 023 [email or web address] 58 [facility], [address], [place], [address], 3 15:06:19 ropivacain e (PF) 5 mg/mL (0.5 %) injection solution 2022 023 [email or web address] 58 [facility], [address], [place], [address], 3 15:06:19 prednisone 10 mg tablets in a dose pack 2022 023 [email or web address] 58 [facility], [address], [place], [address], 3 15:13:25 Patient TargetsNo targets recorded. Patient InstructionsNo instructions recorded. Reason for Referral Physical Therapist Referral for Radial tear of lateral meniscus please contact patient to schedule Referring Physician: Noel Blevins, Orthopedic Surgery, Encounter Date: 07/30/2022 Results Created Date Observation Date Name Description Value Unit Range Abnormal Flag Note LastModifiedBy Organization Detail LastModifiedTime 04/15/20 22 XR, knee No observ ation record ed. [id number] [facility] [place] 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 COMPAR JERRI: Radiog raphs dated 2021. TECHNI QUE: Multip lanar multis equenc e noncon trast MR images of the right knee were perfor med. Axial: T2, Terrazas l: T1, PD, Fat Sep G, Sagita l: T2, PD, Fat Sep G, ACL chaser . FINDIN GS: No fractu re or bone marrow edema are identi fied throug hout the right knee. The ACL, PCL, MCL, LCL, marisol ceps tendon , patell ar tendon , and poplit eus tendon are intact . There is likely an ill-de fined tear of the inner margin of the body of the latera l menisc us (image 18, series 8 and 9; image 8, Page 1 of 2 [facility] Name: LOBO CRABTREE Access ion #: [id number] Sex: F : 1960 Exam Date: 2021 7:13 AM Exam Name: MRI KNEE RT WO Admitt ing Diagno sis(es ): series 4). There is a radial tear of the inner margin of the medial menisc us body (image 4, series 8 and 9; image 6, series 4). There is 3 mm latera l patell ar sublux ation. There is focal thinni ng of the articu lar cartil age of the centra l patell a (image 8, series 2). There is mild thinni ng of the articu lar cartil age of the medial compar tment. There is a large joint effusi on. There is a ruptur ed poplit eal fossa cyst. IMPRES NATE: 1. The crucia te and collat eral ligame nts are intact . 2. Tears of the medial and latera l menisc i as detail ed above. 3. Interm ediate grade chondr omalac ia patell a and low-gr gagan chondr omalac ia of the medial compar tment. 4. Large joint effusi on and ruptur ed poplit eal fossa cyst. Create d and electr onical ly signed by: Fred singer MD Signed Date: 2021 10:51 AM (CT) Dictat ed by: Fred singer MD DD: 2021 10:51 AM (CT) DT: 2021 10:51 AM (CT) Page 2 of 2 [id number] [facility] (Imaging) [address] [place], [address], 07/24/2022 08:16:53 04/26/2004/16/2022 MRI, knee, w/o contr ast No observ ation record ed. [id number] [facility] [address], [place], [address], 07/24/2022 08:16:53 Result Notes None recorded. Problems Name Problem SNOMED Code Status Onset Date Resolution Date Notes Provider Name and Address Organization Details Recorded Time Acute tear of meniscus of right knee 7896871243411 9107 Active 2021 Not Available [facility] 3 08:10:49 Acquired trigger finger 3805607 Active Not Available [facility] 3 08:10:49 Body mass index 30+ - obesity 372392819 Active 2021 Not Available [facility] 3 08:10:50 Osteoarthr itis of knee 199798423 Active Not Available [facility] 3 08:10:50 Atrophic vulva 958795281 Active Not Available [facility] 3 08:10:50 Tear of medial meniscus of knee 424323891 Active 2021 Not Available [facility] 3 08:10:50 Tear of lateral meniscus of knee 534642335 Active 2021 Not Available [facility] 3 08:10:50 Tear of lateral meniscus of knee 154367741 Active 2021 Not Available [facility] 3 08:10:50 Current tear of medial cartilage AND/OR meniscus of knee Active Not Available [facility] 3 08:10:50 Current tear of lateral cartilage AND/OR meniscus of knee Active Not Available [facility] 3 08:10:50 Pain of right knee joint 7401231072000 00 Active 2021 Not Available [facility] 3 08:10:50 Pain in limb 46513787 Active Not Available [facility] 3 08:10:50 Radial tear of lateral meniscus 865435739 Active 2022 LELAND Zhang null, [employer] [facility] 3 14:49:22 Achilles tendinitis 77094990 Active 2022 Mesha Bowie null, [employer] [facility] 3 15:07:37 Problem Notes None recorded. Procedures Surgical History Date Name Laterality Status Provider Name and Address Organization Details Recorded Time 07/31/19 23 Ortho - Cortisone Injection completed Noel Blevins MD [address] [place] [address], [place] [address], [place], [address], [employer] [facility] 07/30/2022 15:03:09 05/08/20 22 KNEE ARTHROSCOPY (SURG) completed Not Available [facility] 07/24/2022 08:16:51 Hysterectomy completed Not Available [facility] 07/24/2022 08:06:28 Colonoscopy completed Not Available [facility] 07/24/2022 08:06:28 Endoscopy completed Not Available [facility] 0 07/24/2022 08:06:28 Gallbladder Surgery completed Not Available [facility] 07/24/2022 08:06:28 Knee Surgery completed Not Available [facility] 07/24/2022 08:06:28 Imaging Results Imaging Date Name Status LastModified by Organiz ation Details LastModified Time 04/16/2022 MRI, knee, w/o contrast completed [id number] [facility] [address], [place], [address], 07/24/2022 08:16:53 04/15/2022 XR, knee completed [id number] [facility] [place] [address], [place], [address], 07/24/2022 08:16:53 04/16/2022 MRI, knee, w/o contrast completed [id number] [facility] (Imaging) [address] [facility], [place], [address], 07/24/2022 08:16:53 Procedure Notes None recorded. Medical Equipment None Reported. Allergies Allergen ID Allergen Name Allergen Category Reaction Reaction Severity Criticality Documentation Date Start Date Code Code System Note Provider Name and Address Organization Details Recorded Time Substance with sulfonami de structure and antibacte rial mechanism of action (substanc e) medicatio n rash Not available Not available 07/24/2022 93738 8003 SNOMED Not Available [facility] 3 08:16:41 08857 Reglan medicatio n other Not available Not available 07/24/2022 9230 RxNorm enlar ges pitui tary gland Not Available [facility] 3 08:16:41 53058 lisinopri l medicatio n Not available Not available Not available 07/24/2022 91974 RxNorm Not Available [facility] 3 08:16:41 Medications Name Sig Start Date Stop Date Status Note LastModified by Organization Details LastModified Time cyclobenzap rine 10 mg tablet active Not Available Not Available Not Available prednisone 10 mg tablet PLEASE SEE ATTACHED FOR DETAILED DIRECTION S active Not Available Not Available No t Available atorvastati n 10 mg tablet 04/15 completed Not Available Not Available Not Available azithromyci n 250 mg tablet TAKE 2 TABLETS BY MOUTH TODAY, THEN TAKE 1 TABLET DAILY FOR 4 DAYS 04/15 completed Not Available Not Available Not Available fluconazole 150 mg tablet active Not Available Not Available Not Available benzonatate 200 mg capsule TAKE 1 CAPSULE BY MOUTH THREE TIMES A DAY NEEDED FOR COUGH 04/15 completed Not Available Not Available Not Available metoprolol succinate ER 50 mg tablet,exte nded release 24 hr TAKE 1 TABLET BY MOUTH EVERY DAY active Not Available Not Available No t Available hydrocodone 5 mg-acetamin ophen 325 mg tablet 04/15 completed Not Available Not Available Not Available lisinopril 20 mg tablet 04/15 completed Not Available Not Available Not Available metoprolol succinate ER 100 mg tablet,exte nded release 24 hr TAKE 1 TABLET BY MOUTH DAILY active Not Available Not Available No t Available ciprofloxac in 250 mg tablet 04/15 completed Not Available Not Available Not Available amlodipine 5 mg tablet 04/15 completed Not Available Not Available Not Available ciprofloxac in 500 mg tablet TAKE 1 TABLET BY MOUTH TWICE A DAY active Not Available Not Available No t Available triamcinolo ne acetonide 0.1 % topical cream APPLY TOPICALLY TO AFFECTED AREA(S) TWICE A DAY active Not Available Not Available No t Available prednisone 10 mg tablets in a dose pack Take 1 tab by mouth, 3 times a day for 3 daysTake 1 tab by mouth 2 times a day for 2 daysTake 1 tab by mouth once a day for 1 day 2022 active Not Available Not Available Not Avai lable losartan 100 mg-hydrochl orothiazide 25 mg tablet 04/15 completed Not Available Not Available Not Available Kenalog 10 mg/mL suspension for injection in office 2022 active [facility]: [phone] Not Available Not Available Not Available amlodipine 10 mg tablet TAKE 1 TABLET BY MOUTH DAILY active Not Available Not Available No t Available hydrocodone 7.5 mg-acetamin ophen 325 mg tablet TAKE 1 TABLET BY MOUTH EVERY 4 HOURS NEEDED FOR PAIN active Not Available Not Available No t Available pantoprazol e 40 mg tablet,nette yed release TAKE 1 TABLET BY MOUTH EVERY DAY IN THE MORNING FOR 6 WEEKS active Not Available Not Available No t Available valsartan 320 mg tablet 04/15 completed Not Available Not Available Not Available candesartan 32 mg tablet TAKE 1 TABLET BY MOUTH DAILY active Not Available Not Available No t Available gentamicin 0.1 % topical cream active Not Available Not Available Not Available diclofenac sodium 75 mg tablet,nette yed release active Not Available Not Available Not Available montelukast 10 mg tablet TAKE 1 TABLET BY MOUTH ONCE DAILY active Not Available Not Available No t Available hydrocodone 5 mg-acetamin ophen 500 mg tablet active Not Available Not Available No t Available hydrochloro thiazide 25 mg tablet TAKE 1 TABLET BY MOUTH DAILY active Not Available Not Available No t Available Transderm-S service technician copier 1 mg over 3 days transdermal patch 04/15 completed Not Available Not Available Not Available methylpredn isolone 4 mg tablets in a dose pack 04/15 completed Not Available Not Available Not Available losartan 100 mg tablet 04/15 completed Not Available Not Available Not Available amoxicillin 875 mg-potassiu m clavulanate 125 mg tablet TAKE 1 TABLET BY MOUTH TWICE DAILY FOR 5 DAYS 04/15 completed Not Available Not Available Not Available ezetimibe 10 mg tablet TAKE 1 TABLET BY MOUTH EVERY DAY active Not Available Not Available No t Available Premarin 0.625 mg/gram vaginal cream insert 1gram vaginally twice weekly 04/15 completed Not Available Not Available Not Available nitrofurant oin monohydrate /macrocryst als 100 mg capsule TAKE 1 CAPSULE BY MOUTH EVERY 12 HOURS FOR 5 DAYS MUST ADMINISTE R WITH A MEAL/FOOD active Not Available Not Available No t Available Flovent HFA 110 mcg/actuati on aerosol inhaler INHALE 2 PUFFS BY MOUTH EVERY 12 HOURS - ADMINISTE R WITH SPACER, RINSE AND SPIT active Not Available Not Available No t Available Singulair 04/15 completed Not Available Not Available Not Available omeprazole 40 mg-sodium bicarbonate 1.1 gram capsule 04/15 completed Not Available Not Available Not Available Bystolic 20 mg tablet 04/15 completed Not Available Not Available Not Available azelastine 205.5 mcg (0.15 %) nasal spray active Not Available Not Available Not Available sodium,pota ssium,mag sulfates 17.5 gram-3.13 gram-1.6 gram oral soln TAKE BY MOUTH DIRECTED active Not Available Not Available No t Available ropivacaine (PF) 5 mg/mL (0.5 %) injection solution in office 2022 active [facility] [phone] Not Available Not Available Not Available [facility] spacer USE DIRECTED active Not Available Not Available No t Available Lotemax 0.5 % eye gel drops active Not Available Not Available Not Available Fluzone 45 mcg (15 mcg x 3)/0.5 mL intramuscul ar suspension active Not Available Not Available N ot Available Asmanex HFA 100 mcg/actuati on aerosol inhaler INHALE 2 PUFFS BY MOUTH TWICE A DAY - RINSE AND SPIT, USE WITH SPACER 04/15 completed Not Available Not Available Not Available Fluvirin 2100-9338 45 mcg (15 mcg x 3)/0.5 mL intramuscul ar suspension ADM 0.5ML IM UTD active Not Available Not Available No t Available Afluria Quad 60 mcg (15 mcg x 4)/0.5 mL IM suspension 04/15 completed Not Available Not Available Not Available Vitals Date Recorded Body mass index (BMI) Body height Body weight Provider Name and Address Organization Details Last Updated DateTime 04/15/2022 36.9 kg/m2 175.26 cm 244984.09 g Not Available [facility] 07/24/2022 08:06:55 Date Recorded Body mass index (BMI) Body height Body weight Provider Name and Address Organization Details Last Updated DateTime 04/23/2022 36.2 kg/m2 175.26 cm 576990.13 g Not Available [facility] 07/24/2022 08:06:55 Date Recorded Body mass index (BMI) Body height Body weight Provider Name and Address Organization Details Last Updated DateTime 05/21/2022 36.2 kg/m2 175.26 cm 056973.13 g Not Available [facility] 07/24/2022 08:06:55 Date Recorded Body height Provider Name an d Address Organization Details Last Updated DateTime 07/30/2022 175.26 cm LELAND Zhang [place] [facility] 07/30/2022 14:48:33 Social History Question Answer Notes LastModified by Organizat ion Details LastModified Time Tobacco Smoking Status Former Smoker Not Available [facility] 07/24/2022 08:06:03 What Is Your Level Of Alcohol Consumption? None [id number] Information not available 07/24/2022 Sex: Unknown Functional Status None recorded. Mental Status None recorded. Family History Relationship Description Onset Age of this Age Resolved Age Notes LastModified by Organization Details LastModified Time Father Hypertensive disorder [id number] Not available 07/24/2022 08:06:29 Mother Hypertensive disorder [id number] Not available 07/24/2022 08:06:29 Medical History Condition Response ARTHRITIS Y HYPERTENSION Y Gynecological HistoryNo gynecological history recorded. Obstetrics History GPAL:G 0 P 0 0 0 0 Past Encounters Encounter ID Performer Location Encounter Start Date Encounter Closed Date Diagnosis/Indication Diagnosis SNOMED-CT Code Diagnosis ICD10 Code Diagnosis Note [id number] [facility] [place] [address] [place] [address] 04/15/2022 00:00:00 04/15/2022 10:28:17 [id number] [facility] [place] [address] [place] [address] 04/23/2022 00:00:00 04/23/2022 14:33:15 [id number] [facility] [place] [address] [place] [address] 05/21/2022 00:00:00 05/21/2022 15:03:53 [id number] Noel Blevins MD [facility] [place] [address] [place] [address] 07/30/2022 14:44:36 07/30/2022 15:42:10 Tear of medial meniscus of knee 404651484 S83.241D Radial tea r of lateral meniscus 014007893 S83.281D Achilles tendinitis 1165 4001 M76.60 Health Concerns Section Related Observation LastModified by Organization Detai ls LastModified Time None Recorded Concern Status LastModified by Organization Details LastModified Time None Recorded Advance Directives Directive None Recorded Payers Encounter Date Sequence Insurance Name Policy Number Policy Rivera Covered Member ID Rivera Member ID Guarantor Name 07/30/2022 1 [place] [id number] Rivera Harrison [id number] Lilibeth Harrison Notes Date Note Type Note Provider Name and Address Organization Details Recorded Time 04/15/2022 text/html KneeReported bypatient.Location :medial Quality:sharp; deep; occasional Severity:moderate Duration:continuou s since onset Timing:acute; abrupt Context:cannot identify Alleviating Factors:lying down; elevation; exercise; stretching Aggravating Factors:walking; lifting; carrying; twisting; bending/squatting Associated Symptoms:swelling; popping/clicking;b uckling Not Available [facility] 04/15/2022 10:28:17 04/23/2022 text/html KneeReported bypatient.Location :medial Quality:sharp; deep; occasional Severity:moderate Duration:continuou s since onset Timing:acute; abrupt Context:cannot identify Alleviating Factors:lying down; elevation; exercise; stretching Aggravating Factors:walking; lifting; carrying; twisting; bending/squatting Associated Symptoms:swelling; popping/clicking;b uckling Not Available [facility] 04/23/2022 14:33:15 07/30/2022 text/html Patient returns status post knee arthroscopy right she was doing well until last month it has settled down actually hurts a bit more pain localized medially worse with activity somewhat relieved rest. It is still much better than before. Noel Blevins MD [address] [place] [address], [place] [address], [place], [address], [facility] 07/30/2022 15:34:34 OBGyn Episode No OBEpisode recorded.
--- OUTSIDE RECORDS SUMMARY | 2024-08-20 08:03 | XMS_ITS | Continuity of Care Document ---
Author Organization [facility] Address [address] [place] [address] Phone Care Team Providers Care Biology Department Chair Name Role Phone Emigdio Byrne Unavailable Unavailable Procedures Procedure Date Eye Exam, New Patient Ophthalmoscopy Advance Directives Directive Yes / No Effective Date File Name No Information Encounters Encounter Description Practice Location Reason(s) For Visit Diagnoses Date Provider Providers Copied on Encounter [facility], [address] [place] [address] [address], [place], [place], [id number], [place] tel:[phone] [facility] No Information [address] [place], [address], [place]. tel:[phone] Referring Provider: Paxton Langston OD R, [address] [facility], [place], [address]. tel:[phone] Family History Family Member Type Diagnosis Age At Onset No Information Payers Payer name Insurance type Covered constitution party ID Authoravinasha ajay(s) [facility] CI [id number] Social History Type Description Quantity Date Captured [...]
== END 2024-08-20 07:56 | disposition home or self-care (01) ==
LOC: ANHIMG 08:00
PROVIDERS: PCP Family Medicine Adolescent Medicine; Visit Provider Family Medicine Adolescent Medicine
DX: Z12.31 Encounter for screening mammogram for malignant neoplasm of breast (principal)
CPT/HCPCS: 77063; 77067

== ENCOUNTER 2024-09-01 09:11 | Outpatient (CLI) | payer MEDICARE, SELFPAY ==
--- NOTE | ~2024-09-01 | XR_ITS ---
AP view of the pelvis and AP and lateral views of the bilateral hips Clinical history: Pain Findings: No acute fracture or dislocation is seen. Osseous alignment is anatomic. Bilateral hip and SI joint spaces are preserved. Soft tissues are unremarkable. Impression: No significant abnormality is seen. Reviewed, dictated and finalized at [facility]. Impression: No significant abnormality is seen.
== END 2024-09-01 09:12 | disposition home or self-care (01) ==
LOC: GOSHIMG 09:12
PROVIDERS: PCP Family Medicine; Visit Provider Family Medicine
DX: M25.559 Pain in unspecified hip (principal)
CPT/HCPCS: 73521

== ENCOUNTER 2024-10-13 09:00 | Outpatient (RCR) | payer MEDICARE, SELFPAY ==
--- NOTE | 2024-09-16 09:58 | OPREHPOC ---
Outpatient Therapy Plan of Care This is a Multidisciplinary Plan of Care that may contain components documented by all disciplines (PT, OT, and ST.) PT Problem 1 PT Problem #1 Knowledge Deficit PT Goal 1 Goal / Goal Update 1. pt to be IND with issued HEP Target Visit 8 PT Problem 2 PT Problem #2 Pain PT Goal 1 Goal / Goal Update 1. Pt to report hip pain no greater than 3/10 in the last week 2. Pt to report a full night of sleep without being woken d/t hip pain Target Visit 8 PT Problem 3 PT Problem #3 Impaired Range of Motion PT Goal 1 Goal / Goal Update 1. pt to improve L hip int rot ROM to 20 deg Target Visit 8 PT Problem 4 PT Problem #4 Impaired Functional Mobility PT Goal 1 Goal / Goal Update 1. Pt to navigate stairs without compensations and minimal pain Target Visit 8
--- NOTE | 2024-09-16 09:58 | PTOPEVAL1 ---
Assessment and note entered by Velvet Roman, PT, DPT Evaluation Information Assessment Status Evaluation Diagnosis helena hip pain ICD-10 Condition Codes (PT) Pain in right hip M25.551,Pain in left hip M25.552 Subjective Information Pt states if she sits for any length of time she gets pain in her hips, also will wake at night d/t discomfort from laying on her hips. Can walk and stand with any length of time without an increase in pain. Had a fall about 2 months ago and has been less active since then. Reports osteoporosis in helena hips. Reported Pain Level Pain Score 5: Self Report Assessment PT Clinical Summary Pt presents to therapy today for her initial evaluation with a diagnosis of helena hip pain. She demonstrates decreased L hip ROM and decreased strength helena. She ambulates and navigates stairs with deviations d/t pain and limited ROM. Skilled therapy services are indicated to address the deficits noted above, to manage pain, and to return to PLOF. Plan of Care Interventions Electrical Stimulation,Gait Training,Hot Pack/Cold Pack,Manual Therapy,Neuro Re-education,Patient/ Caregiver Education,Therapeutic Activities, Therapeutic Exercise PT Services Indicated Yes Treatment Frequency and 1x/wk for 6 visits Duration These treatments will address the objective and functional deficits as defined above. The patient will be advanced safely and appropriately in order for the patient to progress towards his/her prior level of function. Additional exercises will be introduced and as well as a comprehensive home exercise program upon discharge, if needed, to ensure carryover of functional gains achieved in the clinic. This treatment plan has been reviewed and agreement upon by the patient.
--- NOTE | 2024-10-13 09:46 | PTOPDC ---
Assessment and note entered by Dewey Vilchis Evaluation Information Assessment Status Discharge Diagnosis bilateral hip pain ICD-10 Condition Codes (PT) Pain in right hip M25.551,Pain in left hip M25.552 Subjective Information Pt. reports that she is going up and down steps with mild pain. She reports she is sleeping through the night without complication. She states that she is continuing to exercise at home and feels she is ready for discharge at this time. Reported Pain Level Pain Score 0,0: Self Report Assessment PT Clinical Summary Mrs. Harrison attended a total of 5 treatment sessions. In this time she has demonstrated improvements in pain reports, sleep habits, gait mechanics, l.e. strength and functional mobility. She is encouraged to continue with her HEP and will be discharged from our care. Plan of Care PT Services Indicated No
== END 2024-10-13 13:25 | disposition home or self-care (01) ==
LOC: ANHGOSHPT 09:00
PROVIDERS: PCP Family Medicine; Visit Provider Family Medicine
DX: M25.551 Pain in right hip (principal); M25.552 Pain in left hip
CPT/HCPCS: 97110; 97112; 97161

== ENCOUNTER 2025-02-24 07:49 | Outpatient (CLI) | payer MEDICARE, SELFPAY ==
--- OUTSIDE RECORDS SUMMARY | 2009-06-12 08:00 | XMS_ITS | Continuity of Care Document ---
Author Organization [facility] [place] [address] [place] [address] Phone Care Team Providers Care Bad Credit Collector Name Role Phone Emigdio Byrne Unavailable Unavailable Procedures Procedure Date Eye Exam, New Patient Ophthalmoscopy Advance Directives Directive Yes / No Effective Date File Name No Information Encounters Encounter Description Practice Location Reason(s) For Visit Diagnoses Date Provider Providers Copied on Encounter [facility], [id number] [place] [address] [address], [place], [place], [id number], [place] tel:[phone] [facility] No Information [address] [place], [address], [place]. tel:[phone] Referring Provider: Paxton Langston OD R, [address] [facility], [place], [address]. tel:[phone] Family History Family Member Type Diagnosis Age At Onset No Information Payers Payer name Insurance type Covered democrat ID Authoravinasha ajay(s) [facility] CI [id number] Social History Type Description Quantity Date Captured Comments Sex Female Smoking Status No Information Chief Complaint And Reason For Visit No Information Reason For Referral Reason For Referral No Information History Of Present Illness Encounter Date Complaint History Of Prese nt Illness No Information Functional Status Date Functional Assessmen t No Information Instructions Date Instruction Additional Infor mation No Information Assessments Type Assessment Date No Information Patient Care Teams Name Effective Dates (start - stop) Status Members No Information
--- NOTE | ~2025-02-24 | CT_ITS ---
EXAMINATION:CT diagnostic chest w con DATE: 02/24/2025 08:22 INDICATION: Solitary pulmonary nodule. TECHNIQUE: Computed tomography (CT) of the chest was performed with 75 mL Omnipaque 350 intravenous contrast. Automated exposure control and iterative reconstruction technique were employed. The dose-length product (DLP) was 287.23 mGy-cm. COMPARISON: Chest CT 03/24/2024, 12/17/2021 FINDINGS: The lungs demonstrate mild atelectasis. Calcified right lung nodules and calcified right hilar lymph nodes are consistent with old granulomatous disease. There is a 10 mm nodule in right middle lobe, stable from 12/17/21, likely benign. There is a 7 mm nodule at minor fissure, stable from 12/17/21, likely benign. No pleural effusion. There is left atrial enlargement of the heart. There are coronary artery calcifications. There is a trace pericardial effusion. Calcifications in the spleen are consistent with old granulomatous disease. There are changes of cholecystectomy. There is cortical thinning of the kidneys. There is moderate cervical spondylosis and mild thoracic spondylosis. IMPRESSION: 1. Chronic pulmonary nodules, likely benign. Reviewed, dictated and finalized at location E.
--- OUTSIDE RECORDS SUMMARY | 2025-02-24 07:53 | XMS_ITS | Clinical Summary ---
Author Organization [facility] Address [address] [place] [address] Care Team Providers Care Mechanical Engineering Lecturer Name Role Phone Kevyn Smith DO Primary Care Provider [phone] Encounters Date Type Department Care Team Description 02/17/2025 2:42 PM CDT - 02/17/2025 11:59 PM CDT Hospital Encounter [facility] [place] [address] Kevyn Smith DO Discharge Disposition: Home or Self Care (Routine Discharge) 02/17/2025 Travel from Last 3 Months Social History Tobacco Use Types Packs/Day Years Used Date Smoking Tobacco: Never Assessed Comments Unknown Sex and Gender Information Value Date Recorded Sex Assigned at Female 02/17/2025 2:40 PM CDT Legal Sex Female 2:40 PM CDT Gender Identity Not on file Sexual Orientation Not on file Plan of Treatment Health Maintenance Due Date Last Done Comments Colorectal Cancer Screening Colonoscopy (10 Years) 1958 Hepatitis C 1976 Mammogram Screening 1998 Annual Medicare Wellness Visit 2023 Dexa Scan (General) 2023 COVID-19 Vaccine ( season) 2025 08/23/2021, 03/22/2021, 08/18/2020, Additional history exists Influenza Adult (#1) 2025 03/17/2015 RSV Immunization or 60+ Years (1 - 1-dose 75+ series) 2033 DTaP, Tdap and Td Vaccines (2 - Td or Tdap) 01/13/2034 01/14/2024 Zoster Vaccines Completed 11/01/2021, 10/2021, 05/31/2021 Pneumococcal Vaccine: 50+ Years Completed 01/07/2024 Meningococcal B Vaccine Aged Out No l onger eligible based on patient's age to complete this topic Meningococcal Vaccine Aged Out No brandy meme eligible based on patient's age to complete this topic RSV Immunizations Under 20 Months Aged Out No longer eligible based on patient's age to complete this topic Procedures Procedure Name Priority Date/Time Associated Diagnosis Comments CT HEART SCREEN CALCIUM SCORE PROMO Routine 02/17/2025 3:00 PM CDT Hyperlipidemia, unspecified from Last 3 Months Results * CT HEART SCREEN CALCIUM SCORE PROMO (02/17/2025 3:00 PM CDT) Anatomical Region Laterality Modality Chest Computed Tomogra phy 02/17/2025 3:25 PM CDT Impressions 02/17/2025 3:28 PM CDT =====IMPRESSION:===== Total Score: 534 Extensive plaque, high risk, high likelihood of significant stenosis (>50%). A round well-circumscribed solid pulmonary nodule measuring 10 mm and a smaller satellite nodule is present within the right middle lobe. CT of the chest with contrast and/or PET/CT is recommended for further characterization Ordered By: KEVYN SMITH Interpreted By: Alex Jones MD, 02/17/2025 3:25 PM Narrative 02/17/2025 3:28 PM CDT [address] [address] EXAMINATION: Multislice Helical CT Coronary Calcium Scoring REASON FOR EXAM: Screening for heart disease COMPARISON: None TECHNIQUE: Multislice helical CT images of the proximal coronary arteries with a computer generated calcification score. A dose lowering technique was used for this procedure, which may include, but is not limited to, dose reduction technique, automated exposure control, iterative reconstruction, ALARA (As Low As Reasonably Achievable), or Image Gently techniques. Results: Left main: 42.7 LAD: 491 Circumflex: 0 Right coronary: 0 Total Score: 534 Comments: There is no mediastinal adenopathy and no significant pericardial effusion present. There are several small pulmonary nodules within the right middle lobe. The largest of these is solid, well-circumscribed, and measures 10 mm in diameter. Comparison to old studies is recommended. If none are available, consider diagnostic CT of the chest with contrast and PET/CT for further characterization Calcium score guidelines: Total Score* Calcium Plaque [place] *Risk *Probability of significant CAD 0 No Plaque Very Low Very unlikely 1-10 Minimal Plaque Low Unlikely 11-100 Mild Plaque Moderate Low likelihood of significant stenosis <50% 101-400 Moderate Plaque Moderately High Moderate likelihood of significant stenosis (>50%) Over 400 Extensive Plaque High High likelihood of significant stenosis (>50%) The amount of coronary artery calcification correlates with the severity of coronary atherosclerosis and the probability of future significant event. Calcification is not site specific for stenosis and does not identify non-calcified atherosclerotic plaque, but rather indicates the extent of atherosclerosis in the coronary arteries overall. The score may be used as an indicator for risk factor modification or additional cardiac testing. Significant change in calcium score over time may be indicative of subsequent disease development or useful as a benchmark to assess preventative programs. Procedure Note Alex Jones MD - 02/17/[address] [address] EXAMINATION: Multislice Helical CT Coronary Calcium Scoring REASON FOR EXAM: Screening for heart disease COMPARISON: None TECHNIQUE: Multislice helical CT images of the proximal coronary arterieswith a computer generated calcification score. A dose lowering techniquewas used for this procedure, which may include, but is not limited to,dose reduction technique, automated exposure control, iterativereconstruction, ALARA (As Low As Reasonably Achievable), or Image Gentlytechniques. Results: Left main: 42.7 LAD: 491 Circumflex: 0 Right coronary: 0 Total Score: 534 Comments: There is no mediastinal adenopathy and no significantpericardial effusion present. There are several small pulmonary noduleswithin the right middle lobe. The largest of these is solid,well-circumscribed, and measures 10 mm in diameter. Comparison to oldstudies is recommended. If none are available, consider diagnostic CT ofthe chest with contrast and PET/CT for further characterization Calcium score guidelines: Total Score* Calcium Plaque [place] *Risk *Probability ofsignificant CAD 0 No Plaque Very LowVery unlikely 1-10 Minimal Plaque LowUnlikely 11-100 Mild Plaque ModerateLow likelihood of significant stenosis <50% 101-400 Moderate Plaque Moderately HighModerate likelihood of significant stenosis (>50%) Over 400 Extensive Plaque HighHigh likelihood of significant stenosis (>50%) The amount of coronary artery calcification correlates with the severityof coronary atherosclerosis and the probability of future significantevent. Calcification is not site specific for stenosis and does notidentify non-calcified atherosclerotic plaque, but rather indicates theextent of atherosclerosis in the coronary arteries overall. The score may be used as an indicator for risk factor modification oradditional cardiac testing. Significant change in calcium score over timemay be indicative of subsequent disease development or useful as abenchmark to assess preventative programs. =====IMPRESSION:===== Total Score: 534 Extensive plaque, high risk, high likelihood ofsignificant stenosis (>50%). A round well-circumscribed solid pulmonary nodule measuring 10 mm and asmaller satellite nodule is present within the right middle lobe. CT ofthe chest with contrast and/or PET/CT is recommended for furthercharacterization Ordered By: KEVYN SMITH Interpreted By: Alex Jones MD, 02/17/2025 3:25 PM us Kevyn Smith DO CT Final Result from Last 3 Months Insurance [employer] MEDICARE Care Teams Mechanical Engineering Lecturer Relationship Specialty Start Date End Date Kevyn Smith DO [address] [place] [address] PCP - General FAMILY PRACTICE 02/09/25
== END 2025-02-24 07:50 | disposition home or self-care (01) ==
PROVIDERS: PCP Family Medicine; Visit Provider Family Medicine
DX: R91.8 Other nonspecific abnormal finding of lung field (principal); R91.1 Solitary pulmonary nodule
CPT/HCPCS: 71260; Q9967

== ENCOUNTER 2025-05-10 13:09 | Outpatient (CLI) | payer MEDICARE, SELFPAY ==
--- NOTE | 2025-05-10 13:20 | NEURO_ITS ---
Impression: # Complains of numbness of right hand. # No history of diabetes. History of Factor V deficiency. # Right Carpal Tunnel Syndrome. # Right Ulnar Neuropathy around the elbow. # Needle/ EMG exam abnormal. Nerve Conduction Studies ?Stim Site NR Peak (ms) P-T Amp (?V) Site1 Site2 Delta-P (ms) Dist (cm) Cesar (m/s) Right Median Anti Sensory (2-3nd Digit) Wrist ? 6.2 7.4 Wrist 2-3nd Digit 6.2 14.0 23 Wrist ? 6.6 2.6 Wrist 2-3nd Digit 6.2 14.0 23 Right Radial Anti Sensory (Base 1st Digit) Wrist ? 2.5 13.4 Wrist Base 1st Digit 2.5 0.0 Right Ulnar Anti Sensory (5th Digit) Wrist ? 2.6 33.5 Wrist 5th Digit 2.6 14.0 54 ?Stim Site NR Onset (ms) O-P Amp (mV) Site1 Site2 Delta-0 (ms) Dist (cm) Cesar (m/s) Right Median Motor (Abd Poll Brev) Wrist ? 6.0 0.9 Elbow Wrist 4.3 29.0 67 Elbow ? 10.3 1.0 Right Ulnar Motor (Abd Dig Minimi) Wrist ? 2.2 5.2 A Elbow Wrist 5.5 29.0 53 A Elbow ? 7.7 3.8 B Elbow Wrist 4.3 22.0 51 B Elbow ? 6.5 1.9 F Wave Studies ?NR F-Lat (ms) L-R F-Lat (ms) Right Median (Mrkrs) (Abd Poll Brev) ? 33.98 Right Ulnar (Mrkrs) (Abd Dig Min) ? 30.04 Electromyography ?Side Muscle Nerve Root Ins Act Fibs Amp Dur Recrt Comment Right 1stDorInt Ulnar C8-T1 Nml Nml Nml Nml Nml Right Ext Indicis Radial (Post Int) C7-8 Nml Nml Nml Nml Nml Right Ext Digitorum Radial (Post Int) C7-8 Nml Nml Nml Nml Nml Right BrachioRad Radial C5-6 Nml Nml Nml Nml Nml Right PronatorTeres Median C6-7 Nml Nml Nml Nml Nml Right Abd Poll Brev Median C8-T1 Nml Nml Decr >12ms +1 Right ABD Dig Min Ulnar C8-T1 Nml Nml Nml Nml Nml Right FlexPolLong Median (Ant Int) C7-8 Nml Nml Nml Nml Nml Right Abd Poll Long Radial (Post Int) C7-8 Nml Nml Nml Nml Nml
--- OUTSIDE RECORDS SUMMARY | 2025-05-10 15:18 | XMS_ITS | Clinical Summary ---
Author Organization [facility] Address [address] [place] [address] Care Team Providers Care Cashier Wrapper Name Role Phone Kevyn Smith DO Primary Care Provider [phone] Encounters Date Type Department Care Team Description 02/28/2025 Telephone [facility], [address] [id number] Angie Caballero RN Follow Up Call (CT Heart Calcium Score) 02/17/2025 2:42 PM CDT - 02/17/2025 11:59 PM CDT Hospital Encounter [facility] [address] [facility] [place], [place] [id number] Kevyn Smith DO Discharge Disposition: Home or [...] 05/31/2021 Pneumococcal Vaccine: 50+ Years Completed 01/07/2024 Hepatitis A Vaccines Aged Out No long er eligible based on patient's age to complete this topic Meningococcal B Vaccine Aged Out No l [...] 3:25 PM Narrative 02/17/2025 3:28 PM CDT [facility] - [address] [address] EXAMINATION: Multislice Helical CT Coronary Calcium Scoring [...] Calcium score guidelines: Total Score* Calcium Plaque [place] *Risk *Probability of significant CAD 0 No [...] Procedure Note Alex Jones MD - 02/17/[address] [facility] [address] [place], [place] [address] EXAMINATION: Multislice Helical CT Coronary Calcium Scoring [...] Calcium score guidelines: Total Score* Calcium Plaque [place] *Risk *Probability ofsignificant CAD 0 No Plaque [...] Final Result from Last 3 Months Insurance [facility] MEDICARE Care Teams Cashier Wrapper Relationship Specialty Start Date End Date Kevyn Smith DO [address] [place] [address] PCP - General FAMILY PRACTICE 02/09/25
== END 2025-05-10 13:10 | disposition home or self-care (01) ==
LOC: ANHNEURO 13:13
PROVIDERS: PCP Family Medicine; Visit Provider Physician Assistant Surgical
DX: G56.01 Carpal tunnel syndrome, right upper limb (principal); G56.21 Lesion of ulnar nerve, right upper limb; D68.51 Activated protein C resistance
CPT/HCPCS: 95886; 95909